=== PATIENT | female | born 1945 | race Caucasian/White ===

== ENCOUNTER 2016-10-26 08:46 | Emergency (ER) | payer MEDICARE, OTHER ==
[2016-10-26] MEDS ORDERED: ASPIRIN 81 MG CHEW TAB PO ONE (09:12)
--- NOTE | 2016-10-26 09:13 | ED Physician Documentation ---
Chest Pain - HISTORIAN Historian: patient - HPI Chief Complaint: Chest Pain Onset: minutes (30-455 minutes) Timing: sudden onset Duration: persistent Last known Well Date: 10/26/16 Last Known Well Time: 08:00 Last known Well Code/Unknown Code: Known Context: emotional upset Severity: moderate Chest Pain Radiation: no radiation Chest Pain Signs/Symptoms: weakness. denies: nausea, vomiting Worsened By: nothing Relieved By: nothing Further Comments: yes (Mikhail was feeling fine until she received word that her sister had . She states that she became hysterical and developed pain in her chest, back, arms, abd. No shortness of breath noted. No history of previous heart problems other then one episdoe of A Fib 5 years ago. Pains seems to be doing better at this time and are almost gone.) - ROS CONST: none SKIN/ENDO: none NEURO/PSYCH: anxiety. denies: headache, fainting - PAST HX [place] risk factors: no pertinent history, A-Fib. denies: hypertension, diabetes Type 1, diabetes Type 2, hyperlipidemia DVT/PE Risk Factors: none GI disease: none Lung disease: none Surgeries/Procedures: cholecysectomy, other (cataract, tonsilectomy, child ) Allergies/Adverse Reactions: Allergies Allergy/AdvReac Type Severity Reaction Status Date / Time No Known Allergies Allergy Verified 10/26/16 10:13 Home Medications: Ambulatory Orders Medication Instructions Recorded Ascorbic Acid [Vitamin C] 500 mg PO QD 06/10/13 Calcium Carb 600Mg/Vit D-3 400 1 each PO DAILY 06/10/13 [Caltrate with Vit D] Cyanocobalamin (Vitamin B-12) 1,500 mcg PO DAILY 06/10/13 [B-12] Methylsulfonylmethane [MSM] 500 mg PO DAILY 06/10/13 Multivitamin [Tab-A-Emili] 1 each PO QD 06/10/13 - SOCIAL HX Smoking History: non-smoker Alcohol Use: none Drug Use: none - FAMILY HX Family HX: none - VITAL SIGNS Vital Signs: Vital Signs Temp Pulse Resp BP Pulse Ox 143/97 06/10/13 12:55 - REVIEWED ASSESSMENTS Nursing Assessment Reviewed: Yes Vitals Reviewed: Yes Progress - Progress Progress: 0938 Pain is, no SOB 1010 Is now having some mild left subscapular pain that ? radiates in to the left neck area. 1-08/06 1048 chest pain almost gone Chest Pain Physical Exam - EXAM General Appearance: alert, mild distress, anxious EENT: ENT inspection normal Neck: nml inspection, no carotid bruit. No: JVD present, lymphadenopathy Respiratory: no resp. distress, chest non-tender, nml breath sounds. No: resp.distress, manifests distinct pain on movement CVS: reg. rate & rhythm, no murmur, no gallop, no friction rub, pulses full, pulses equal Abdomen: soft, no organomegaly, normal bowel sounds, no abdominal bruit, no distension, non-tender Skin: warm/dry, normal color Extremities: non-tender, normal range of motion Neuro: oriented X3, mood/affect nml, cognition normal Discharge Clincal Impression: Elevated troponin I level Chest pain Qualifiers: Ischemic chest pain type: unstable angina pectoris Referrals: Primary Doctor,No [Primary Care Provider] - 2 Days Home Medications: Ambulatory Orders Ascorbic Acid [Vitamin C] 500 mg PO QD 06/10/13 Calcium Carb 600Mg/Vit D-3 400 [Caltrate with Vit D] 1 each PO DAILY 06/10/13 Cyanocobalamin (Vitamin B-12) [B-12] 1,500 mcg PO DAILY 06/10/13 Methylsulfonylmethane [MSM] 500 mg PO DAILY 06/10/13 Multivitamin [Tab-A-Emili] 1 each PO QD 06/10/13 Condition: Stable Disposition: XFER SHT-TRM HOSP Decision to Admit: [id number] Date of Decison to Admit: 10/26/16 Decision Time: 10:47
[2016-10-26 09:43] LABS: BASOPHILS % 0.6 (0.0-1.5); EOSINOPHILS % 2.9 % (0.0-6.8); MEAN CORPUSCULAR HEMOGLOBIN 29.2 pg (28.0-34.0); MEAN CORPUSCULAR VOLUME 93.4 fl (80.0-100.0); MONOCYTES % 4.2 % (0.0-11.0); NEUTROPHILS # 3.6 # k/uL (1.4-7.7)
[2016-10-26 09:51] LABS: eGFR (African) > 60; eGFR (Non-African) > 60
[2016-10-26] MEDS ORDERED: NITROGLYCERIN 0.4 MG TAB.SUBL SL ONE (10:11)
[2016-10-26] MEDS ORDERED: CLOPIDOGREL BISULFATE 75 MG TABLET PO ONE (10:21)
[2016-10-26] MEDS ORDERED: ENOXAPARIN SODIUM 100 MG/ML DISP.SYRIN SQ ONE (10:21)
[2016-10-26] MEDS ORDERED: METOPROLOL TARTRATE 5 MG/5 ML VIAL IVP ONE (10:23)
[2016-10-26 11:12] VITALS: BP 100/74
--- NOTE | 2016-10-26 12:53 | Diagnostic Imaging Report ---
SOCORRO FRAZIER [facility] [id number] [facility] [address] [address] Report Submission Date: October 26, 2016 9:51:26 AM CDT Patient Study Name: CHANCE HEATH Date: October 26, 2016 9:19:07 AM CDT Modality Type: CR Gender: F Description: CHEST : 41 Institution: [facility] Physician: SOCORRO FRAZIER Chest -two views CLINICAL HISTORY: Left-sided neck and arm pain. Chest pain. FINDINGS: Examination of the chest in PA and lateral views with no prior film for comparison demonstrates lungs to be hyperinflated but clear. Cardiac silhouette is prominent and the aorta is atherosclerotic and tortuous. There is mild prominence of the central pulmonary arteries possibly related to pulmonary arterial hypertension. Monitor leads superimpose the chest. IMPRESSION: Aortic atherosclerosis and left ventricular prominence. Hyperinflation. Prominent central pulmonary arteries. Rule out pulmonary arterial hypertension. No active disease. Electronically signed on October 26, 2016 9:51:26 AM CDT by: Mamadou SHAH
== END 2016-10-26 11:00 | disposition short-term general hospital (02) ==
LOC: ED 08:46
DX: I20.0 Unstable angina (principal)
CPT/HCPCS: 71020; 80053; 84484; 85025; 93005; J1650; J3490; 90471; 96374; 99283; 99284; S1016

== ENCOUNTER 2017-09-20 08:58 | Outpatient (CLI) | payer MEDICARE, OTHER ==
[2017-09-20 10:03] LABS: eGFR (African) > 60; eGFR (Non-African) > 60
[2017-09-20 16:30] LABS: T3-UPTAKE 33.3 % (25.4-41.2)
== END 2017-09-20 09:00 ==
LOC: RT 08:58
PROVIDERS: ATTEND Family Medicine
DX: I48.0 Paroxysmal atrial fibrillation (principal); R00.0 Tachycardia, unspecified
CPT/HCPCS: 36415; 80053; 84436; 84479

== ENCOUNTER 2017-09-22 09:22 | Outpatient (CLI) | payer MEDICARE, OTHER | END 2017-09-22 09:24 | LOC: RT 09:22 | PROVIDERS: ATTEND Family Medicine | DX: I48.0 Paroxysmal atrial fibrillation (principal) | CPT/HCPCS: 93225 ==

== ENCOUNTER 2017-10-06 11:16 | Outpatient (CLI) | payer MEDICARE, OTHER ==
[2017-10-06 11:56] LABS: BASOPHILS % 1.2 (0.0-1.5); EOSINOPHILS % 2.5 % (0.0-6.8); MEAN CORPUSCULAR HEMOGLOBIN 29.4 pg (28.0-34.0); MEAN CORPUSCULAR VOLUME 94.3 fl (80.0-100.0); MONOCYTES % 5.8 % (0.0-11.0); NEUTROPHILS # 2.5 # k/uL (1.4-7.7)
== END 2017-10-06 11:17 ==
LOC: LAB 11:16
PROVIDERS: ATTEND Family Medicine
DX: D69.9 Hemorrhagic condition, unspecified (principal); I48.91 Unspecified atrial fibrillation
CPT/HCPCS: 36415; 85025; 85610; 85730

== ENCOUNTER 2017-10-11 11:33 | Outpatient (CLI) | payer MEDICARE, OTHER | END 2017-10-11 11:35 | LOC: CARD 11:33 | PROVIDERS: ATTEND Internal Medicine Cardiovascular Disease | DX: I48.91 Unspecified atrial fibrillation (principal); I48.92 Unspecified atrial flutter; Z86.79 Personal history of other diseases of the circulatory system; E78.5 Hyperlipidemia, unspecified | CPT/HCPCS: G0463 ==

== ENCOUNTER 2017-12-06 10:46 | Outpatient (CLI) | payer MEDICARE, OTHER ==
[2017-12-06 12:53] LABS: eGFR (African) > 60; eGFR (Non-African) > 60
== END 2017-12-06 10:48 ==
LOC: CARD 10:46
PROVIDERS: ATTEND Internal Medicine Cardiovascular Disease
DX: I48.91 Unspecified atrial fibrillation (principal); E78.5 Hyperlipidemia, unspecified; Z86.79 Personal history of other diseases of the circulatory system
CPT/HCPCS: 36415; 80048; G0463

== ENCOUNTER 2019-05-02 09:36 | Outpatient (CLI) | payer MEDICARE, OTHER ==
[2019-05-02 10:30] LABS: HDL 53 mg/dL (>40); eGFR (Non-African) > 60
== END 2019-05-02 09:41 ==
LOC: LAB 09:36
PROVIDERS: ATTEND Family Medicine
DX: Z13.6 Encounter for screening for cardiovascular disorders (principal)
CPT/HCPCS: 36415; 80053; 80061